=== PATIENT | male | born 1990 | race Caucasian/White ===

== ENCOUNTER → 2018-07-16 | Outpatient (CLI) | payer OTHER ==
[~2018-07-16] MED LIST: AMPDEX10; HYDACE5 PO; NAPR500 PO
== END | disposition home or self-care (01) ==
LOC: LAB SHORT 12:50 → LAB EV 12:50
DX: J02.9 Acute pharyngitis, unspecified (principal)
CPT/HCPCS: 87070; 87147

== ENCOUNTER 2018-07-30 16:23 | Emergency (ER) | payer OTHER ==
[~2018-07-30] VITALS: Ht 177.8 cm; Wt 95.2 kg
== END 2018-07-30 20:10 | disposition home or self-care (01) ==
LOC: ER 16:23
DX: R45.851 Suicidal ideations (principal); R45.1 Restlessness and agitation
CPT/HCPCS: 99284; Q3014